=== PATIENT | female | born 1940 | race Caucasian/White ===

== ENCOUNTER 2016-10-05 05:07 | Emergency (ER) | payer MEDICARE, BC | END 2016-10-05 09:31 | disposition home or self-care (01) | LOC: ER 05:07 | DX: R41.0 Disorientation, unspecified (principal); I69.951 Hemiplegia and hemiparesis following unspecified cerebrovascular disease affecting right dominant side; I10 Essential (primary) hypertension; Z79.01 Long term (current) use of anticoagulants; Z79.82 Long term (current) use of aspirin; K21.9 Gastro-esophageal reflux disease without esophagitis | CPT/HCPCS: 36415; 70450; 71010; 80053; 81003; 82947; 85025; 85610 ==